=== PATIENT | female | born 1940 | race Caucasian/White ===

== ENCOUNTER 2023-02-28 08:49 | Outpatient (CLI) | payer MEDICARE, BC | END 2023-02-28 08:50 | disposition home or self-care (01) | LOC: CSHCP 08:49 | PROVIDERS: ATTEND Internal Medicine Critical Care Medicine | DX: J44.9 Chronic obstructive pulmonary disease, unspecified (principal) | CPT/HCPCS: 94060; 94726; 94729; 94760 ==